=== PATIENT | female | born 2005 | race Caucasian/White ===

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

== ENCOUNTER 2025-06-18 22:59 | Emergency (ER) | payer OTHER ==
[~2025-06-18] VITALS: Ht 172.7 cm; Wt 77.1 kg
[~2025-06-18 22:59] MED LIST changes: +AMOX-430 PO
[2025-06-18 23:30] LABS: APPEARANCE,URINE CLEAR (CLEAR); BLOOD, URINE NEGATIVE Ery/uL (NEGATIVE); LEUKOCYTE ESTERASE ,URINE NEGATIVE (NEGATIVE); NITRITE, URINE NEGATIVE (NEGATIVE); UGLUCOSE NEGATIVE (NEGATIVE)
[2025-06-18 23:32] LABS: PREGNANCY TEST URINE QUAL NEGATIVE (NEGATIVE)
[2025-06-18] MEDS ORDERED: ONDANSETRON HCL/PF 4 MG/2 ML VIAL ONE (23:36)
[2025-06-18] MEDS ORDERED: PANTOPRAZOLE 40 MG VIAL ONE (23:36)
[2025-06-18] MEDS: PANTOPRAZOLE 40 MG VIAL IV ONE (23:37)
[2025-06-18] MEDS: IV NS 0.9% 1,000 ML BAG IV ONE (23:37)
[2025-06-18] MEDS ORDERED: DICYCLOMINE HCL 10 MG CAPSULE PO ONE (23:37)
[2025-06-18] MEDS: DICYCLOMINE HCL 10 MG CAPSULE PO ONE (23:38)
[2025-06-18] MEDS: ONDANSETRON HCL/PF 4 MG/2 ML VIAL IV ONE (23:38)
[2025-06-18 23:40] LABS: PLATELET COUNT (AUTO) 188 K/uL (150-450); RED BLOOD CELL COUNT(AUTO) 4.89 MIL/uL (4.0-5.2); RED CELL DISTRIBUTION WIDTH 13.3 % (11.5-15.0); WHITE BLOOD COUNT (AUTO) 8.4 K/uL (4.3-11.0)
[2025-06-18 23:43] LABS: ADD URINE CULTURE NO
[2025-06-18] MEDS ORDERED: DICY10CA37 PO (23:48)
[2025-06-18] MEDS ORDERED: PANT40TA2 PO (23:48)
[2025-06-18] MEDS ORDERED: ONDA4TAB5 PO (23:48)
[2025-06-18 23:52] LABS: CALCIUM, SERUM 8.6 mg/dL (8.5-10.1); CREATININE 0.7 mg/dL (0.6-1.3); SODIUM SERUM 139 mmol/L (136-145); UREA NITROGEN, BLOOD 9 mg/dL (7-18)
[2025-06-18 23:56] LABS: ASPARTATE AMINOTRANSFERASE 14 U/L (15-37); TOTAL PROTEIN, SERUM 7.6 g/dL (6.4-8.2)
[2025-06-19 00:37] VITALS: BP 120/78; TEMP 98.3; O2SAT 96
== END 2025-06-19 00:37 | disposition home or self-care (01) ==
LOC: ER 23:05
DX: R10.9 Unspecified abdominal pain (principal); R11.2 Nausea with vomiting, unspecified; Z79.899 Other long term (current) drug therapy
CPT/HCPCS: 99284; 96374; 96361; 96375; 85025; 83690; 83735; 84703; 81001; 36415; 80053; 86140; J2405; J7030; J2470